=== PATIENT | female | born 1945 | race African-American/Black ===

== ENCOUNTER → 2017-12-05 | Outpatient (CLI) | payer MEDICARE, OTHER | END | disposition home or self-care (01) | LOC: MAMMO 15:36 | DX: N63.10 Unspecified lump in the right breast, unspecified quadrant (principal) | CPT/HCPCS: 76641; 77066 ==

== ENCOUNTER → 2017-12-25 | Outpatient (CLI) | payer MEDICARE, OTHER | END | disposition home or self-care (01) | LOC: US 11:51 | DX: N64.52 Nipple discharge (principal); C50.911 Malignant neoplasm of unspecified site of right female breast (principal); Z98.890 Other specified postprocedural states | CPT/HCPCS: 19081; 76942; 77065; 88305; 88341; 88342; 88361; C1713 ==

== ENCOUNTER → 2018-01-27 | Outpatient (CLI) | payer MEDICARE, OTHER ==
[2018-01-27 16:17] LABS: ADD MAN DIFF? NO
[2018-01-27 16:19] LABS: BASO % 0 % (0-3); EOS # 0.1 x10^3/uL (0.0-0.7); EOS % 2 % (0-3); HEMATOCRIT 31.8 % (36.0-47.0); HEMOGLOBIN 10.4 g/dL (12.0-15.5); LYMPH # 1.8 x10^3/uL (1.0-4.8); LYMPH % 39 % (24-48); MEAN CORPUSCULAR HEMOGLOBIN 27 pg (25-35); MEAN CORPUSCULAR HGB CONC 33 g/dL (31-37); MEAN CORPUSCULAR VOLUME 81 fL (79-100); MONO # 0.3 x10^3/uL (0.0-1.1); MONO % 7 % (0-9); NEUT # 2.3 x10^3uL (1.8-7.7); NEUT % 51 % (31-73); PLATELET COUNT 339 x10^3/uL (140-400); RED BLOOD COUNT 3.94 x10^6/uL (3.50-5.40); RED CELL DISTRIBUTION WIDTH 17.1 % (11.5-14.5); WHITE BLOOD COUNT 4.6 x10^3/uL (4.0-11.0)
[2018-01-27 16:50] LABS: ALBUMIN 3.7 g/dL (3.4-5.0); ANION GAP 7 (6-14); BLOOD UREA NITROGEN 29 mg/dL (7-20); CALCIUM 9.4 mg/dL (8.5-10.1); CARBON DIOXIDE 30 mmol/L (21-32); CHLORIDE 104 mmol/L (98-107); GFR 65.6; GLUCOSE 95 mg/dL (70-99); POTASSIUM 3.9 mmol/L (3.5-5.1); SODIUM 141 mmol/L (136-145)
== END | disposition home or self-care (01) ==
LOC: SURGPAT 15:37
DX: Z01.818 Encounter for other preprocedural examination (principal); C50.911 Malignant neoplasm of unspecified site of right female breast
CPT/HCPCS: 36415; 80048; 82040; 85025

== ENCOUNTER 2019-09-20 20:51 | Emergency (ER) | payer MEDICARE, OTHER ==
[~2019-09-20] VITALS: Ht 160 cm; Wt 60.3 kg
[~2019-09-20 20:51] MED LIST: ACET325T9 PO; ALPR1TAB2 PO; ANAS1TAB47 PO; ASPI81TA50 PO; BUME2TAB3 PO; CLON-77 PO; HYDR-2761 PO; LIDO700A21 TD; LUBI8CAP4 PO; NEO/5DRO OD; POTA10TA12 PO; PRED1DRO OS; PRED20TA PO; PREG50CA PO; PREG75CA PO; PROP10TA PO; RANI150T2 PO; SERT50TA PO; SERT50TA8 PO; SIMV20TA18 PO
[2019-09-20 21:23] LABS: BASO % 1 % (0-3); EOS % 0 % (0-3); HEMATOCRIT 34.5 % (36.0-47.0); HEMOGLOBIN 11.2 g/dL (12.0-15.5); LYMPH # 1.2 x10^3/uL (1.0-4.8); LYMPH % 35 % (24-48); MEAN CORPUSCULAR HEMOGLOBIN 27 pg (25-35); MEAN CORPUSCULAR HGB CONC 33 g/dL (31-37); MEAN CORPUSCULAR VOLUME 82 fL (79-100); MONO # 0.4 x10^3/uL (0.0-1.1); MONO % 11 % (0-9); NEUT # 1.7 x10^3/uL (1.8-7.7); NEUT % 53 % (31-73); PLATELET COUNT 306 x10^3/uL (140-400); RED BLOOD COUNT 4.21 x10^6/uL (3.50-5.40); RED CELL DISTRIBUTION WIDTH 17.1 % (11.5-14.5); WHITE BLOOD COUNT 3.3 x10^3/uL (4.0-11.0)
[2019-09-20] MEDS: IV NORMAL SALINE 500ML BAG 500 ML IV ONE (21:30)
[2019-09-20 21:32] LABS: CALCIUM 9.4 mg/dL (8.5-10.1); CREATININE 0.8 mg/dL (0.6-1.0); GFR 84.4; POTASSIUM 3.4 mmol/L (3.5-5.1)
[2019-09-20 21:33] LABS: PROTHROMBIN TIME PATIENT 13.3 SEC (11.7-14.0)
[2019-09-20 21:38] LABS: ALBUMIN 3.9 g/dL (3.4-5.0); MAGNESIUM 1.9 mg/dL (1.8-2.4); TOTAL BILIRUBIN 0.4 mg/dL (0.2-1.0); TOTAL PROTEIN 7.8 g/dL (6.4-8.2)
--- NOTE | 2019-09-20 21:38 | RAD ---
EXAM: CHEST ONE VIEW. HISTORY: Shortness of breath. COMPARISON: 05/26/2019. FINDINGS: A frontal view of the chest is obtained. The aorta is aneurysmal and tortuous. The aortic arch measures 5.5 cm by radiographs. This is not definitively changed. Linear opacities in the right base most likely indicate atelectasis. There are no confluent infiltrates. There is no pneumothorax or pleural effusion. The heart is mildly enlarged. There is an internally fixed chronic healed fracture of the right proximal humerus. IMPRESSION: 1. Right basilar atelectasis or scarring. No confluent infiltrates. 2. A thoracic aortic aneurysm is not clearly changed by radiographs. Ongoing follow-up/management is recommended. Electronically signed by: Bimal Magana MD (09/20/2019 9:35 PM) [facility]
[2019-09-20 22:10] LABS: BILIRUBIN,URINE NEGATIVE (NEG); CLARITY,URINE CLEAR; COLOR,URINE YELLOW; NITRITE,URINE NEGATIVE (NEG); PROTEIN,URINE NEGATIVE (NEG-TRACE)
[2019-09-20] MEDS: MORPHINE SULFATE 4 MG/ML VIAL. IV ONE (22:13)
[2019-09-20 22:14] LABS: BACTERIA,URINE 0 /HPF (0-FEW); RBC,URINE OCC /HPF (0-2); SQUAMOUS EPITHELIAL CELL,UR FEW /LPF; WBC,URINE OCC /HPF (0-4)
[2019-09-20] MEDS: POTASSIUM CHLORIDE 20 MEQ TABLET.ER. PO ONE (22:38)
[2019-09-20 22:45] VITALS: BP 165/74
[2019-09-20] MEDS: ZOLPIDEM 5 MG TABLET. PO ONE (22:54)
[2019-09-20] MEDS ORDERED: HYDR-3164 PO (23:04)
[2019-09-20] MEDS ORDERED: ZOLP5TAB PO (23:05)
--- NOTE | 2019-09-20 23:05 | PHYS DOC ---
Past Medical History Past Medical History: Abscess, Anxiety, Constipation, Depression, Diabetes-Type II, High Cholesterol Additional Past Medical Histor: BREAST CA, OVARIAN CA, MULTIPLE FALLS, Past Surgical History: Hysterectomy, Other Additional Past Surgical Histo: MASTECTEMY Alcohol Use: None Drug Use: None Adult General Chief Complaint Chief Complaint: MULTIPLE COMPLAINTS HPI HPI Patient is a 74 year old female who was brought here by her son for evaluation of not able to sleep, feeling pain from the site where she had shingles in the past. Patient denies any fever, no cough. Patient denies any abdominal pain, no chest pain, no headache. Her son said patient has history of insomnia for long time, not able to sleep. Patient has been taking melatonin but not working. Patient's son stated that she stays up all night, then during the days she slept. Patient lives with her son . All other ROS is negative unless otherwise noted in HPI Review of Systems Review of Systems See above Current Medications Current Medications Current Medications Medications (Trade) Dose Ordered Sig/Logan Start Time Stop Time Status Last Admin Dose Admin Morphine Sulfate (Morphine Sulfate) 4 mg 1X ONCE 09/20/19 22:15 09/20/19 22:16 DC 09/20/19 22:13 4 MG Potassium Chloride (Klor-Con) 40 meq 1X ONCE 09/20/19 23:00 09/20/19 23:01 DC 09/20/19 22:38 40 MEQ Sodium Chloride 500 ml @ 500 mls/hr 1X ONCE 09/20/19 21:30 09/20/19 22:29 DC 09/20/19 21:30 500 MLS/HR Zolpidem Tartrate (Ambien) 5 mg 1X ONCE 09/20/19 23:00 09/20/19 23:01 DC 09/20/19 22:54 5 MG Allergies Allergies Allergies Coded Allergies Type Severity Reaction Last Updated Verified Sulfa (Sulfonamide Antibiotics) Allergy Intermediate Swelling 02/04/18 Yes hydrocodone Allergy Intermediate 05/19/19 Yes DEBORAH Inhibitors Adverse Reaction Intermediate cough 03/24/18 Yes Penicillins Adverse Reaction Intermediate YEAST INFECTION 03/24/18 Yes cephalexin Adverse Reaction Intermediate Nausea and Vomiting 03/24/18 Yes Physical Exam Physical Exam See above Constitutional: Well developed, well nourished, no acute distress, non-toxic appearance. [] HENT: Normocephalic, atraumatic, bilateral external ears normal, oropharynx moist, no oral exudates, nose normal. [] Eyes: PERRLA, EOMI, conjunctiva normal, no discharge. [] Neck: Normal range of motion, no tenderness, supple, no stridor. [] Cardiovascular:Heart rate regular rhythm, no murmur [] Lungs & Thorax: Bilateral breath sounds clear to auscultation [] Abdomen: Bowel sounds normal, soft, no tenderness, no masses, no pulsatile masses. [] Skin: Warm, dry, no erythema, no rash. [] Back: No tenderness, no CVA tenderness. [] Extremities: No tenderness, no cyanosis, no clubbing, ROM intact, no edema. [] Neurologic: Alert and oriented X 3, normal motor function, normal sensory function, no focal deficits noted. [] Psychologic: Affect normal, judgement normal, mood normal. [] Current Patient Data Vital Signs Vital Signs Date Time Temp Pulse Resp B/P (MAP) Pulse Ox O2 Delivery O2 Flow Rate FiO2 09/20/19 22:45 70 22 165/74 (104) 95 Room Air 09/20/19 21:18 98.8 98.8 Lab Values Laboratory Tests Test 09/20/19 21:05 09/20/19 21:50 White Blood Count 3.3 x10^3/uL (4.0-11.0) L Red Blood Count 4.21 x10^6/uL (3.50-5.40) Hemoglobin 11.2 g/dL (12.0-15.5) L Hematocrit 34.5 % (36.0-47.0) L Mean Corpuscular Volume 82 fL (79-100) Mean Corpuscular Hemoglobin 27 pg (25-35) Mean Corpuscular Hemoglobin Concent 33 g/dL (31-37) Red Cell Distribution Width 17.1 % (11.5-14.5) H Platelet Count 306 x10^3/uL (140-400) Neutrophils (%) (Auto) 53 % (31-73) Lymphocytes (%) (Auto) 35 % (24-48) Monocytes (%) (Auto) 11 % (0-9) H Eosinophils (%) (Auto) 0 % (0-3) Basophils (%) (Auto) 1 % (0-3) Neutrophils # (Auto) 1.7 x10^3/uL (1.8-7.7) L Lymphocytes # (Auto) 1.2 x10^3/uL (1.0-4.8) Monocytes # (Auto) 0.4 x10^3/uL (0.0-1.1) Eosinophils # (Auto) 0.0 x10^3/uL (0.0-0.7) Basophils # (Auto) 0.0 x10^3/uL (0.0-0.2) Prothrombin Time 13.3 SEC (11.7-14.0) Prothrombin Time INR 1.0 (0.8-1.1) Activated Partial Thromboplast Time 31 SEC (24-38) Sodium Level 139 mmol/L (136-145) Potassium Level 3.4 mmol/L (3.5-5.1) L Chloride Level 103 mmol/L (98-107) Carbon Dioxide Level 29 mmol/L (21-32) Anion Gap 7 (6-14) Blood Urea Nitrogen 9 mg/dL (7-20) Creatinine 0.8 mg/dL (0.6-1.0) Estimated GFR (Cockcroft-Gault) 84.4 BUN/Creatinine Ratio 11 (6-20) Glucose Level 110 mg/dL (70-99) H Calcium Level 9.4 mg/dL (8.5-10.1) Magnesium Level 1.9 mg/dL (1.8-2.4) Total Bilirubin 0.4 mg/dL (0.2-1.0) Aspartate Amino Transferase (AST) 13 U/L (15-37) L Alanine Aminotransferase (ALT) 7 U/L (14-59) L Alkaline Phosphatase 68 U/L (46-116) KI-Ptq-R-Type Natriuretic Peptide 238 pg/mL (0-449) Total Protein 7.8 g/dL (6.4-8.2) Albumin 3.9 g/dL (3.4-5.0) Albumin/Globulin Ratio 1.0 (1.0-1.7) Urine Collection Type U cath Urine Color Yellow Urine Clarity Clear Urine pH 7.0 Urine Specific [place] 1.010 Urine Protein Negative mg/dL (NEG-TRACE) Urine Glucose (UA) Negative mg/dL (NEG) Urine Ketones (Stick) Negative mg/dL (NEG) Urine Blood Negative (NEG) Urine Nitrite Negative (NEG) Urine Bilirubin Negative (NEG) Urine Urobilinogen Dipstick 1.0 mg/dL (0.2 mg/dL) Urine Leukocyte Esterase Negative (NEG) Urine RBC Occ /HPF (0-2) Urine WBC Occ /HPF (0-4) Urine Squamous Epithelial Cells Few /LPF Urine Bacteria 0 /HPF (0-FEW) Urine Mucus Slight /LPF Laboratory Tests 09/20/19 21:05 Laboratory Tests 09/20/19 21:05 EKG EKG EKG , RATE OF 76 BPM , NO STEMI, SINUS RHYTHM. Radiology/Procedures Radiology/Procedures [][facility] [address] [place] [address] IMAGING REPORT Signed PATIENT: COMFORT GARCIA ACCOUNT: [id number] : 1945 LOCATION: ER AGE: 74 SEX: F EXAM STATUS: PRE ER ORD. PHYSICIAN: JUDE SOLIZ DO REASON: SOA PROCEDURE: CHEST AP ONLY EXAM: CHEST ONE VIEW. HISTORY: Shortness of breath. COMPARISON: 05/26/2019. FINDINGS: A frontal view of the chest is obtained. The aorta is aneurysmal and tortuous. The aortic arch measures 5.5 cm by radiographs. This is not definitively changed. Linear opacities in the right base most likely indicate atelectasis. There are no confluent infiltrates. There is no pneumothorax or pleural effusion. The heart is mildly enlarged. There is an internally fixed chronic healed fracture of the right proximal humerus. IMPRESSION: 1. Right basilar atelectasis or scarring. No confluent infiltrates. 2. A thoracic aortic aneurysm is not clearly changed by radiographs. Ongoing follow-up/management is recommended. Electronically signed by: Bimal Magana MD (09/20/2019 9:35 PM) [facility] DICTATED and SIGNED BY: IVON MAGANA MD DATE: 09/20/192134 Course & Med Decision Making Course & Med Decision Making Pertinent Labs and Imaging studies reviewed. (See chart for details) Patient's son Stated That He Will Take Her to See Her Doctor Tomorrow for Evaluation. Dragon Disclaimer Dragon Disclaimer This electronic medical record was generated, in whole or in part, using a voice recognition dictation system. Departure Departure Impression: Primary Impression: Post herpetic neuralgia Additional Impression: Insomnia Disposition: HOME, SELF-CARE Condition: STABLE Referrals: LUIS MIGUEL LINO (PCP) FOLLOW UP WITH YOUR DOCTOR TOMORROW. Patient Instructions: Chronic Pain, Insomnia Scripts Zolpidem Tartrate (AMBIEN) 5 Mg Tablet 5 MG PO PRN QHS PRN for INSOMNIA for 2 Days, #2 TAB 0 Refills Prov: JUDE SOLIZ DO 09/20/19 Hydrocodone/Apap 5-325 (NORCO 5-325 TABLET) 1 Each Tablet 1 TAB PO PRN Q6HRS PRN for PAIN for 2 Days, #8 TAB 0 Refills Prov: JUDE SOLIZ DO 09/20/19 Problem Qualifiers JUDE SOLIZ DO Sep 20, 2019 23:05
--- NOTE | 2019-09-21 07:26 | EKG ---
[facility] [address] [place] [address] Test Date: 2019-09-20 Test Time: 21:47:57 Pat Name: COMFORT GARCIA Department: Room: Gender: F Licensed Psychiatric Technician: : 1945 Requested By: JUDE SOLIZ Order Number: [id number] Reading MD: Measurements Intervals [place] Rate: 76 P: 0 WV: 166 QRS: -4 QRSD: 88 T: 67 QT: 386 QTc: 434 Interpretive Statements SINUS RHYTHM LEFTWARD AXIS QRS(T) CONTOUR ABNORMALITY CONSIDER ANTEROLATERAL MYOCARDIAL DAMAGE POSSIBLY ABNORMAL ECG RI6.01 No previous ECG available for comparison
== END 2019-09-20 23:30 | disposition home or self-care (01) ==
LOC: ER 20:51
DX: B02.29 Other postherpetic nervous system involvement (principal); G47.00 Insomnia, unspecified; E78.00 Pure hypercholesterolemia, unspecified; E11.9 Type 2 diabetes mellitus without complications; Z88.0 Allergy status to penicillin; Z88.1 Allergy status to other antibiotic agents; Z88.2 Allergy status to sulfonamides; Z88.5 Allergy status to narcotic agent; Z88.8 Allergy status to other drugs, medicaments and biological substances
CPT/HCPCS: 36415; 71045; 80053; 81001; 83735; 83880; 85025; 85610; 85730; 93005; 96374; 99285; J2270; J7040

== ENCOUNTER 2020-01-29 18:58 | Emergency (ER) | payer MEDICARE, OTHER ==
[~2020-01-29] VITALS: Ht 149.9 cm; Wt 54.5 kg
[~2020-01-29 18:58] MED LIST changes: +HYDR-3164 PO; +PREG-9 PO; -PREG50CA PO; +PREG50CA91 PO; -PREG75CA PO; +ZOLP5TAB PO
[2020-01-29] MEDS ORDERED: ASPIRIN 325 MG TABLET PO ONE (19:15)
--- NOTE | 2020-01-29 19:44 | RAD ---
INDICATION: Chest pain COMPARISON: October 09, 2019 FINDINGS: Single view of chest obtained. Hypoexpanded exam with elevation of the right hemidiaphragm again seen. Mild interstitial prominence is similar to prior without a definite new lobar infiltrate. Postoperative changes to the right proximal humerus partially seen with screws. There is also degenerative changes left shoulder as well as a lucent lesion at superior lateral aspect of the humeral head again seen measuring up to 18 mm which is commonly from causes such as geode formation but nonspecific appearance on plain film. Repeat demonstration of tortuous aortic contour with thoracic aortic aneurysm and calcific atherosclerosis. IMPRESSION: * Hypoexpanded examination without a definite new infiltrate. * Repeat demonstration of tortuous aortic contour with calcific atherosclerosis as well as thoracic aortic aneurysm again seen. Electronically signed by: Derick Victor MD (01/29/2020 7:41 PM) [id number]
[2020-01-29 19:46] LABS: BASO % 0 % (0-3); EOS % 1 % (0-3); HEMATOCRIT 33.2 % (36.0-47.0); HEMOGLOBIN 10.7 g/dL (12.0-15.5); LYMPH % 27 % (24-48); MEAN CORPUSCULAR HEMOGLOBIN 26 pg (25-35); MEAN CORPUSCULAR HGB CONC 32 g/dL (31-37); MEAN CORPUSCULAR VOLUME 81 fL (79-100); MONO # 0.3 x10^3/uL (0.0-1.1); MONO % 9 % (0-9); NEUT # 2.3 x10^3/uL (1.8-7.7); NEUT % 63 % (31-73); PLATELET COUNT 290 x10^3/uL (140-400); RED BLOOD COUNT 4.11 x10^6/uL (3.50-5.40); RED CELL DISTRIBUTION WIDTH 17.8 % (11.5-14.5); WHITE BLOOD COUNT 3.6 x10^3/uL (4.0-11.0)
[2020-01-29] MEDS: NITROGLYCERIN SUBLINGUAL 0.4 MG BOTTLE OF 25. SL PRN ×2 (19:46→20:10)
[2020-01-29 19:57] LABS: CALCIUM 9.2 mg/dL (8.5-10.1); CREATININE 0.7 mg/dL (0.6-1.0); GFR 98.4; POTASSIUM 3.4 mmol/L (3.5-5.1)
[2020-01-29 20:02] LABS: ALBUMIN 3.8 g/dL (3.4-5.0); MAGNESIUM 2.1 mg/dL (1.8-2.4); TOTAL BILIRUBIN 0.5 mg/dL (0.2-1.0); TOTAL PROTEIN 7.6 g/dL (6.4-8.2)
[2020-01-29 20:12] LABS: CREATINE KINASE 62 U/L (26-192)
--- NOTE | 2020-01-29 20:28 | PHYS DOC ---
Past Medical History Past Medical History: Abscess, Anxiety, Constipation, Depression, Diabetes-Type II, High Cholesterol, Hypertension Additional Past Medical Histor: BREAST CA, OVARIAN CA, MULTIPLE FALLS, SHINGLES Past Surgical History: Hysterectomy, Other Additional Past Surgical Histo: BILAT MASTECTEMY, SHOULDER, ANKLE Smoking Status: Never Smoker Alcohol Use: None Drug Use: None General Adult EDM: Chief Complaint: CHEST PAIN-CARDIAC NATURE HPI: HPI: Patient is a 74 year old female with history of diabetes type 2, hypertension, high cholesterol, breast cancer with double mastectomy who presents to the ED today complaining of unrated generalized chest pain that has been going on since 2018 when she had a double mastectomy. Patient is in the ED with a son who reports patient was seen by the PCP earlier today and was given medications but she refused to stay at home and requested to be brought to the ED to be evaluated for her chest pain. Son states patient pain is chronic and there is nothing unusual about her pain today. Review of Systems: Review of Systems: Constitutional: Denies fever or chills. [] Eyes: Denies change in visual acuity. [] HENT: Denies nasal congestion or sore throat. [] Respiratory: Denies cough or shortness of breath. [] Cardiovascular: Reports chest pain GI: Denies abdominal pain, nausea, vomiting, bloody stools or diarrhea. [] : Denies dysuria. [] Musculoskeletal: Denies back pain or joint pain. [] Integument: Denies rash. [] Neurologic: Denies headache, focal weakness or sensory changes. [] Psychiatric: Denies depression or anxiety. [] Heart Score: HEART Score for Chest Pain: HEART Score for Chest Pain Response (Comments) Value History Slighlty/Non-Suspicious 0 ECG Normal 0 Age > 65 2 Risk Factors >3 Risk Factors or Hx CAD 2 Troponin < Normal Limit 0 Total 4 Risk Factors: Risk Factors: DM, Current or recent (<one month) smoker, HTN, HLP, family history of CAD, obesity. Risk Scores: Score 0 - 3: 2.5% MACE over next 6 weeks - Discharge Home Score 4 - 6: 20.3% MACE over next 6 weeks - Admit for Clinical Observation Score 7 - 10: 72.7% MACE over next 6 weeks - Early Invasive Strategies Current Medications: Current Medications Medications (Trade) Dose Ordered Sig/Logan Start Time Stop Time Status Last Admin Dose Admin Aspirin (Shantal Aspirin) 325 mg 1X ONCE 01/29/20 19:15 01/29/20 19:16 DC 01/29/20 19:46 325 MG Nitroglycerin (Nitrostat) 0.4 mg PRN Q5MIN PRN 01/29/20 19:15 01/30/20 19:14 01/29/20 20:10 0.4 MG Allergies: Allergies: Allergies Coded Allergies Type Severity Reaction Last Updated Verified Sulfa (Sulfonamide Antibiotics) Allergy Intermediate Swelling 02/04/18 Yes hydrocodone Allergy Intermediate 05/19/19 Yes DEBORAH Inhibitors Adverse Reaction Intermediate cough 03/24/18 Yes Penicillins Adverse Reaction Intermediate YEAST INFECTION 03/24/18 Yes cephalexin Adverse Reaction Intermediate Nausea and Vomiting 03/24/18 Yes Physical Exam: PE: Constitutional: Well developed, well nourished, no acute distress, non-toxic appearance. [] HENT: Normocephalic, atraumatic, bilateral external ears normal, oropharynx moist, no oral exudates, nose normal. [] Eyes: PERRLA, EOMI, conjunctiva normal, no discharge. [] Neck: Normal range of motion, no tenderness, supple, no stridor. [] Cardiovascular:Heart rate regular rhythm, no murmur [] Lungs & Thorax: Bilateral breath sounds clear to auscultation [] Abdomen: Bowel sounds normal, soft, no tenderness, no masses, no pulsatile masses. [] Skin: Warm, dry, no erythema, no rash. [] Back: No tenderness, no CVA tenderness. [] Extremities: No tenderness, no cyanosis, no clubbing, ROM intact, no edema. [] Neurologic: Alert and oriented X 3, normal motor function, normal sensory function, no focal deficits noted. [] Psychologic: Affect normal, judgement normal, mood normal. [] Current Patient Data: Labs: Laboratory Tests Test 01/29/20 19:37 White Blood Count 3.6 x10^3/uL (4.0-11.0) L Red Blood Count 4.11 x10^6/uL (3.50-5.40) Hemoglobin 10.7 g/dL (12.0-15.5) L Hematocrit 33.2 % (36.0-47.0) L Mean Corpuscular Volume 81 fL (79-100) Mean Corpuscular Hemoglobin 26 pg (25-35) Mean Corpuscular Hemoglobin Concent 32 g/dL (31-37) Red Cell Distribution Width 17.8 % (11.5-14.5) H Platelet Count 290 x10^3/uL (140-400) Neutrophils (%) (Auto) 63 % (31-73) Lymphocytes (%) (Auto) 27 % (24-48) Monocytes (%) (Auto) 9 % (0-9) Eosinophils (%) (Auto) 1 % (0-3) Basophils (%) (Auto) 0 % (0-3) Neutrophils # (Auto) 2.3 x10^3/uL (1.8-7.7) Lymphocytes # (Auto) 1.0 x10^3/uL (1.0-4.8) Monocytes # (Auto) 0.3 x10^3/uL (0.0-1.1) Eosinophils # (Auto) 0.0 x10^3/uL (0.0-0.7) Basophils # (Auto) 0.0 x10^3/uL (0.0-0.2) Sodium Level 141 mmol/L (136-145) Potassium Level 3.4 mmol/L (3.5-5.1) L Chloride Level 103 mmol/L (98-107) Carbon Dioxide Level 30 mmol/L (21-32) Anion Gap 8 (6-14) Blood Urea Nitrogen 13 mg/dL (7-20) Creatinine 0.7 mg/dL (0.6-1.0) Estimated GFR (Cockcroft-Gault) 98.4 BUN/Creatinine Ratio 19 (6-20) Glucose Level 99 mg/dL (70-99) Calcium Level 9.2 mg/dL (8.5-10.1) Magnesium Level 2.1 mg/dL (1.8-2.4) Total Bilirubin 0.5 mg/dL (0.2-1.0) Aspartate Amino Transferase (AST) 16 U/L (15-37) Alanine Aminotransferase (ALT) 11 U/L (14-59) L Alkaline Phosphatase 71 U/L (46-116) Creatine Kinase 62 U/L (26-192) Creatine Kinase MB (Mass) 0.5 ng/mL (0.0-3.6) Creatine Kinase MB Relative Index % (0-4) Troponin I Quantitative < 0.017 ng/mL (0.000-0.055) CL-Uyx-P-Type Natriuretic Peptide 214 pg/mL (0-449) Total Protein 7.6 g/dL (6.4-8.2) Albumin 3.8 g/dL (3.4-5.0) Albumin/Globulin Ratio 1.0 (1.0-1.7) Thyroid Stimulating Hormone (TSH) 1.158 uIU/mL (0.358-3.74) Laboratory Tests 01/29/20 19:37 Laboratory Tests 01/29/20 19:37 Vital Signs: Vital Signs Date Time Temp Pulse Resp B/P (MAP) Pulse Ox O2 Delivery O2 Flow Rate FiO2 01/29/20 20:10 75 146/83 01/29/20 19:00 98.8 20 99 Room Air 98.8 EKG: EKG: [] Radiology/Procedures: Radiology/Procedures: []PROCEDURE: PORTABLE CHEST 1V INDICATION: Chest pain COMPARISON: October 09, 2019 FINDINGS: Single view of chest obtained. Hypoexpanded exam with elevation of the right hemidiaphragm again seen. Mild interstitial prominence is similar to prior without a definite new lobar infiltrate. Postoperative changes to the right proximal humerus partially seen with screws. There is also degenerative changes left shoulder as well as a lucent lesion at superior lateral aspect of the humeral head again seen measuring up to 18 mm which is commonly from causes such as geode formation but nonspecific appearance on plain film. Repeat demonstration of tortuous aortic contour with thoracic aortic aneurysm and calcific atherosclerosis. IMPRESSION: * Hypoexpanded examination without a definite new infiltrate. * Repeat demonstration of tortuous aortic contour with calcific atherosclerosis as well as thoracic aortic aneurysm again seen. Electronically signed by: Diana Victor MD (01/29/2020 7:41 PM) [id number] DICTATED and SIGNED BY: DIANA VICTOR MD DATE: 01/29/201940 Course & Med Decision Making: Course & Med Decision Making Pertinent Labs and Imaging studies reviewed. (See chart for details) This is a 74-year-old female patient presenting to the ED today with complaints of chronic chest pain that has been going on since 2018 after she had a double mastectomy. Patient was seen by the PCP this morning for the same complaint per son statement and given medications. She insisted on being brought back to the ED. Patient's cardiac work-up is negative. She will be discharged to home and follo w-up with her PCP. Stephany Disclaimer: Stephany Disclaimer: This electronic medical record was generated, in whole or in part, using a voice recognition dictation system. Departure Departure Impression: Primary Impression: Chest pain Qualified Codes: R07.9 - Chest pain, unspecified Disposition: HOME, SELF-CARE Condition: STABLE Referrals: LUIS MIGUEL LINO (PCP) Follow-up next week Patient Instructions: Chest Pain (Nonspecific), [id number] Additional Instructions: You were evaluated in the emergency room, there is nothing acute about your work-up today. Please continue following up with your own primary care doctor. FAITH OLSON WAREHOUSE SPECIALIST January 29, 2020 20:28
[2020-01-29 20:30] VITALS: BP 145/86
--- NOTE | 2020-02-01 07:07 | EKG ---
[facility] [address] [place] [address] Test Date: 2020-01-29 Test Time: 19:08:42 Pat Name: COMFORT GARCIA Department: Room: Gender: F Cad Designer: : 1945 Requested By: FAITH OLSON Order Number: [id number] Reading MD: Mal Ramírez MD Measurements Intervals [place] Rate: 82 P: 26 SD: 172 QRS: 0 QRSD: 88 T: 66 QT: 360 QTc: 424 Interpretive Statements SINUS RHYTHM NON-SPECIFIC ST/T CHANGES Electronically Signed On 02-01-2020 9:17:18 CDT by Mal Ramírez MD
== END 2020-01-29 20:54 | disposition home or self-care (01) ==
LOC: ER 18:58
DX: R07.89 Other chest pain (principal); I10 Essential (primary) hypertension; E78.00 Pure hypercholesterolemia, unspecified; E11.9 Type 2 diabetes mellitus without complications; F41.9 Anxiety disorder, unspecified; Z88.0 Allergy status to penicillin; Z88.1 Allergy status to other antibiotic agents; Z88.2 Allergy status to sulfonamides; Z88.5 Allergy status to narcotic agent; Z88.8 Allergy status to other drugs, medicaments and biological substances
CPT/HCPCS: 36415; 71045; 80053; 82553; 83735; 83880; 84443; 84484; 85025; 93005; 99285-25